=== PATIENT | female | born 2000 | race American Indian/Alaskan Native ===

== ENCOUNTER 2020-12-21 08:34 | Emergency (ER) | payer SELFPAY ==
[2020-12-21 09:04] VITALS: BP 142/90
[2020-12-21] MEDS ORDERED: ACETAMINOPHEN 500 MG TAB PO STA (11:09)
[2020-12-21] MEDS ORDERED: IBUPROFEN 800 MG TAB PO STA (11:09)
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
== END 2020-12-21 11:43 | disposition home or self-care (01) ==
LOC: ED 08:34
DX: S39.012A Strain of muscle, fascia and tendon of lower back, initial encounter (principal); F17.200 Nicotine dependence, unspecified, uncomplicated; Z79.899 Other long term (current) drug therapy; V87.7XXA Person injured in collision between other specified motor vehicles (traffic), initial encounter; Y93.89 Activity, other specified; Y92.488 Other paved roadways as the place of occurrence of the external cause; Y99.8 Other external cause status
CPT/HCPCS: 99282

== ENCOUNTER 2021-12-27 14:52 | Emergency (ER) | payer SELFPAY ==
[2021-12-27 16:49] VITALS: BP 105/74
== END 2021-12-27 20:15 | disposition left against medical advice (07) ==
LOC: ED 14:52
DX: M79.641 Pain in right hand (principal); Z53.21 Procedure and treatment not carried out due to patient leaving prior to being seen by health care provider